=== PATIENT | male | born 1945 | race Caucasian/White ===

== ENCOUNTER → 2021-01-08 09:39 | Outpatient (BNVA) | payer OTHER, SELFPAY | PROVIDERS: Family Provider Internal Medicine; PCP Family Medicine; Visit Provider Nurse Practitioner Family | DX: R33.9 Retention of urine, unspecified (principal); R30.0 Dysuria; R39.9 Unspecified symptoms and signs involving the genitourinary system | CPT/HCPCS: 81003; 87086 ==

== ENCOUNTER → 2021-03-12 10:23 | Outpatient (BNVA) | payer OTHER, SELFPAY | PROVIDERS: Family Provider Internal Medicine; PCP Family Medicine; Visit Provider Urology | DX: N41.9 Inflammatory disease of prostate, unspecified (principal); R39.9 Unspecified symptoms and signs involving the genitourinary system; R30.0 Dysuria | CPT/HCPCS: 81003 ==

== ENCOUNTER → 2021-04-23 15:02 | Outpatient (BNVA) | payer OTHER, SELFPAY | PROVIDERS: Family Provider Internal Medicine; PCP Family Medicine; Visit Provider Urology | DX: N41.1 Chronic prostatitis (principal) | CPT/HCPCS: 81003 ==

== ENCOUNTER → 2022-04-24 10:11 | Outpatient (BNVA) | payer OTHER, SELFPAY | PROVIDERS: Family Provider Internal Medicine; PCP Family Medicine; Visit Provider Urology | DX: N39.9 Disorder of urinary system, unspecified (principal); N41.9 Inflammatory disease of prostate, unspecified | CPT/HCPCS: 99213 ==

== ENCOUNTER 2023-10-13 11:09 | Outpatient (CLI) | payer OTHER, SELFPAY ==
--- NOTE | 2023-10-13 11:12 | PETR_ITS ---
PROCEDURE INFORMATION: Exam: PET/CT Skull Base to Mid-thigh Exam date and time: 10/13/2023 11:35 AM Age: 78 years old Clinical indication: Condition or disease; Primary cancer: Melanoma; Initial oncological staging assessment LABS AND CLINICAL REPORTS: Glucose: 106 mg/dl Treatment strategy for malignancy (PET staging): Initial Staging (PI) TECHNIQUE: Imaging protocol: Following at least four-hour fasting and following the injection of radiopharmaceutical, low dose CT images were obtained. Then, PET images were obtained. Attenuation corrected images were constructed using the CT scan. Fused images of PET and CT were reviewed. The standardized uptake values (SUV) reported below are maximum values within a region of interest, expressed in gm/ml. Exam includes orbital meatal line to mid-thigh. Radiopharmaceutical: 13 mCi F-18 FDG (Fluorodeoxyglucose), IV. Time of imaging post radiopharmaceutical administration: 1 hour Injection site: Left antecubital COMPARISON: CT angio chest w abd pel w con 12/03/2017 9:54 AM FINDINGS: Tubes, catheters and devices: There is a nerve stimulator device in the subcutaneous fat of the inferior right posterior flank region with leads terminating along the dorsal aspect of the thoracic canal. Brain: Visualized brain has normal physiologic uptake. Pharynx: No abnormal uptake. Larynx: No abnormal uptake. Lungs, pleura and trachea: No abnormal uptake. Mild dependent streaky density in the lungs is consistent with atelectasis or scarring. An approximately 1 mm anterior right lower lobe calcified granuloma is present. Heart: Normal physiologic uptake. Mediastinal space: No abnormal uptake. Liver: No abnormal uptake. Gallbladder and bile ducts: No abnormal uptake. There are postoperative changes of cholecystectomy. Pancreas: No abnormal uptake. Spleen: No abnormal uptake. Adrenal glands: No abnormal uptake. Kidneys and ureters: Normal physiologic uptake. Stomach and bowel: No abnormal uptake. Intraperitoneal and retroperitoneal spaces: Numerous upper abdominal retroperitoneal surgical clips are present. No abnormal uptake. Additional surgical clips in the pelvis are noted. Urinary bladder: A mildly diffusely thick-walled appearance of the urinary bladder is present. Vasculature: No abnormal uptake. Diffuse atherosclerotic calcifications are noted including within the coronary arteries. Lymph nodes: A posterior left axillary lymph node measuring 1.5 x 0.8 cm on series 3, image 120 demonstrates an SUV max 2.6 on axial image 119. Skeleton: No abnormal uptake in the visualized axial and appendicular skeleton. A healed distal right clavicular fracture is present. Degenerative changes in the spine are noted. Soft tissues: No abnormal uptake in the visualized head, neck, chest, abdomen, pelvis, and extremities. METRICS: Mediastinal blood pool: SUV max 2.2 PET/PET skull to thigh INIT [id number] IMPRESSION: 1. Mild uptake within a borderline prominent left axillary lymph node is noted which may be related to infectious or inflammatory involvement. A malignant etiology cannot be entirely excluded. 2. A mildly diffusely thick-walled appearance of the urinary bladder is noted which may be related to incomplete distension or cystitis. Assessment of the wall of the urinary bladder is limited by PET-CT. 3. Additional nonurgent findings as detailed above.
== END 2023-10-13 11:10 | disposition home or self-care (01) ==
LOC: RAD 11:09
PROVIDERS: Family Provider Internal Medicine; PCP Family Medicine; Visit Provider Family Medicine
DX: Z85.820 Personal history of malignant melanoma of skin (principal); Z97.8 Presence of other specified devices; J84.10 Pulmonary fibrosis, unspecified; N32.89 Other specified disorders of bladder; M47.9 Spondylosis, unspecified
CPT/HCPCS: 78815; A9552

== ENCOUNTER → 2025-01-09 08:32 | Outpatient (BNVA) | payer OTHER, SELFPAY | PROVIDERS: Family Provider Internal Medicine; PCP Family Medicine; Visit Provider Nurse Practitioner Family | DX: L81.4 Other melanin hyperpigmentation (principal); L57.8 Other skin changes due to chronic exposure to nonionizing radiation; D48.5 Neoplasm of uncertain behavior of skin; L21.8 Other seborrheic dermatitis; L57.0 Actinic keratosis | CPT/HCPCS: 11102; 17000; 99204 ==

== ENCOUNTER 2025-02-03 10:57 | Outpatient (CLI) | payer OTHER, SELFPAY ==
--- NOTE | 2025-02-03 11:06 | MRR_ITS ---
PROCEDURE INFORMATION: Exam: MR Lumbar Spine Without and With Contrast Exam date and time: 02/03/2025 11:17 AM Age: 79 years old Clinical indication: Low back pain; Prior surgery; Surgery date: 6+ months; Surgery type: Neurostim; Additional info: Worsening low back pain into RT leg. HX of spinal neurostimulator. Low back pain, RT leg pain. PT has medtronic neurostim put in MR mode. Smoking--n. Cancer (type)--testicular. Surgery--testicle, spine stim, hernia, . iv. # of attempts---1. Side and location---lac. Needle gauge ---22. Contrast administered cc or ml ---16. Saline administered cc or ml ---5. Complications / personnel notified ---n. Contrast (multihance)--16. TECHNIQUE: Imaging protocol: Magnetic resonance imaging of the lumbar spine without and with contrast. Contrast material: MULTIHANCE; Contrast volume: 16 ml; Contrast route: INTRAVENOUS (IV); COMPARISON: None FINDINGS: Bones/joints: Grade 1 anterolisthesis of L4 on L5 measuring up to 0.5 cm. The vertebral body heights are maintained. Dextroscoliosis centered at the L2/L3 level. Moderate multilevel disc space narrowing throughout the lumbar spine. Spinal cord: The conus terminates normally at the L1 level. The roots of the cauda equina are not clumped or thickened. No abnormal intrathecal enhancement. L1-L2: Broad-based disc bulge, bilateral facet arthropathy and ligamentum flavum thickening contributing to mild central canal stenosis. Moderate bilateral neuroforaminal narrowing. L2-L3: Broad-based disc bulge, bilateral facet arthropathy and ligamentum flavum thickening contributing to moderate central canal stenosis. Moderate left and mild right neuroforaminal narrowing. L3-L4: Broad-based disc bulge, bilateral facet arthropathy and ligamentum flavum thickening contributing to [id number] central canal stenosis. Moderate to severe left and moderate right neuroforaminal narrowing. L4-L5: Broad-based disc bulge, bilateral facet arthropathy and ligamentum flavum thickening contributing to moderate central canal stenosis. Moderate bilateral neuroforaminal narrowing. L5-S1: Broad concentric disc bulge and bilateral facet arthropathy contributing to mild central canal stenosis. Mild left and moderate to severe right neuroforaminal narrowing. MR/MR lumbar spine wo/w con [id number] IMPRESSION: Multilevel degenerative changes of the lumbar spine as outlined above.
[2025-02-03] MEDS: gadobenate dimeglumine 20 mL vial 16 ML IV (11:48)
== END 2025-02-03 10:58 | disposition home or self-care (01) ==
LOC: RAD 10:59
PROVIDERS: PCP Family Medicine; Visit Provider Family Medicine
DX: Z01.89 Encounter for other specified special examinations (principal); M51.369 Other intervertebral disc degeneration, lumbar region without mention of lumbar back pain or lower extremity pain; M48.061 Spinal stenosis, lumbar region without neurogenic claudication; M51.379 Other intervertebral disc degeneration, lumbosacral region without mention of lumbar back pain or lower extremity pain; M47.816 Spondylosis without myelopathy or radiculopathy, lumbar region; M47.896 Other spondylosis, lumbar region; M43.16 Spondylolisthesis, lumbar region
CPT/HCPCS: 72158

== ENCOUNTER → 2025-02-06 15:07 | Outpatient (BNVA) | payer OTHER, SELFPAY | PROVIDERS: PCP Family Medicine; Visit Provider Dermatology | DX: C44.629 Squamous cell carcinoma of skin of left upper limb, including shoulder (principal); L57.0 Actinic keratosis | CPT/HCPCS: 17000; 17262 ==